=== PATIENT | female | born 1980 | race Caucasian/White ===

== ENCOUNTER 2021-04-25 10:18 | Emergency (ER) | payer BC, MEDICAID ==
[~2021-04-25] VITALS: Ht 170.2 cm; Wt 68.2 kg
[2021-04-25 10:24] VITALS: BP 110/88
[2021-04-25] MEDS ORDERED: ondansetron 4mg rapidly disintigrating tab PO ONE (12:00)
== END 2021-04-25 12:14 | disposition home or self-care (01) ==
LOC: ER 10:19
DX: Z13.89 Encounter for screening for other disorder (principal); F10.10 Alcohol abuse, uncomplicated; Z72.89 Other problems related to lifestyle; Z88.5 Allergy status to narcotic agent; Z88.8 Allergy status to other drugs, medicaments and biological substances; Y90.9 Presence of alcohol in blood, level not specified
CPT/HCPCS: 99283

== ENCOUNTER 2021-04-27 10:25 | Inpatient (IN) | payer BC, MEDICAID ==
[~2021-04-27] VITALS: Ht 170.2 cm; Wt 68.5 kg
[2021-04-27 11:25] LABS: EOSINOPHILS # (AUTO) 0.1 X10'3 (0-0.9); EOSINOPHILS % (AUTO) 1.8 % (0-6); HEMATOCRIT 34.7 % (35.0-45.0); HEMOGLOBIN 11.7 g/dl (12.0-16.0); LYMPHOCYTES # (AUTO) 1.1 X10'3 (1.1-4.8); LYMPHOCYTES % (AUTO) 24.1 % (21-51); MEAN CORPUSCULAR HEMOGLOBIN 32.2 PG (27.0-31.0); MEAN CORPUSCULAR HGB CONC 33.6 g/dL (33.0-36.5); MEAN CORPUSCULAR VOLUME 95.7 FL (78-98); MONOCYTES # (AUTO) 0.3 X10'3 (0-0.9); NEUTROPHILS % (AUTO) 67.1 % (42-75); PLATELET COUNT 215 X10'3 (140-440); RED BLOOD COUNT 3.63 X10'6 (4.20-5.60); WHITE BLOOD COUNT 4.5 X10'3 (4.5-11.0)
[2021-04-27 11:26] LABS: ALANINE AMINOTRANSFERASE 22 U/L (12-78); ALBUMIN 3.6 G/DL (3.4-5.0); ALBUMIN/GLOBULIN RATIO 1.2 (1.1-1.5); ALKALINE PHOSPHATASE 55 IU/L (46-116); ANION GAP 10 (8-16); ASPARTATE AMINO TRANSFERASE 23 U/L (10-37); BLOOD UREA NITROGEN 13 MG/DL (7-18); BUN/CREATININE RATIO 13.3 (6.6-38.0); CALCIUM 8.1 MG/DL (8.5-10.1); CHLORIDE 106 MMOL/L (99-107); CREATININE 0.98 MG/DL (0.40-0.90); GLUCOSE 123 MG/DL (70-104); POTASSIUM 3.3 MMOL/L (3.5-5.1); SODIUM 141 MMOL/L (135-145); TOTAL PROTEIN 6.5 G/DL (6.4-8.2); eGFR 63 ML/MIN
--- NOTE | 2021-04-27 12:51 | NUR ---
lab at bedside.
[2021-04-27] MEDS ORDERED: nitroGLYCERIN 0.4mg SUBLingual tab SL PRN ×2 (13:05→15:50)
--- NOTE | 2021-04-27 13:28 | NUR ---
Shahida From [place] called # [phone]. call that number for a ride when D/C.
--- NOTE | 2021-04-27 14:14 | NUR ---
ambulated with steady gait to/from restroom, nad.
[2021-04-27] MEDS ORDERED: chlordiazePOXIDE 25mg capsule PO ONE (15:15)
[2021-04-27] MEDS ORDERED: potassium CL 10mEq/100ml bag 100 ML IV PRN (15:50)
[2021-04-27] MEDS ORDERED: haloperidol 5mg tablet PO PRN (15:50)
[2021-04-27] MEDS ORDERED: dextrose 50%-water 50ml dispensing syringe IV PRN (15:50)
[2021-04-27] MEDS ORDERED: aminophylline 500mg/20ml vial IV PRN (15:50)
[2021-04-27] MEDS ORDERED: acetaminophen 650mg rectal suppository RC PRN (15:50)
[2021-04-27] MEDS ORDERED: potassium Cl 20 mEq SR tablet PO PRN (15:50)
[2021-04-27] MEDS ORDERED: ondansetron/PF 4mg/2ml inj IV PRN (15:50)
[2021-04-27] MEDS ORDERED: magnesium Cl slow-release 64mg tablet PO PRN (15:50)
[2021-04-27] MEDS ORDERED: regadenoson 0.4mg/5ml syringe IV PRN (15:50)
[2021-04-27] MEDS ORDERED: magnesium 2GM in 50ml NS 50 ML IV PRN (15:50)
[2021-04-27] MEDS ORDERED: acetaminophen 325mg tablet PO PRN ×2 (15:50)
[2021-04-27] MEDS ORDERED: metoprolol tartrate 1mg/ml inj IV PRN (15:50)
[2021-04-27] MEDS ORDERED: LORazepam 2 mg/ml vial IV PRN (15:50)
[2021-04-27] MEDS ORDERED: haloperidol lactate 5mg/ml inj IM PRN (15:50)
[2021-04-27] MEDS ORDERED: magnesium 4gm in 100ml NS 100 ML IV PRN (15:50)
[2021-04-27] MEDS ORDERED: mag hydrox/Alum hydrox/simeth 30ml oral suspension PO PRN (15:50)
[2021-04-27] MEDS ORDERED: diphenhydrAMINE 25mg capsule PO PRN (15:50)
[2021-04-27] MEDS ORDERED: bisacodyl 10mg suppository rectal RC PRN (15:50)
[2021-04-27] MEDS ORDERED: magnesium hydroxide 30ml (MOM) UD suspension PO PRN (15:50)
[2021-04-27] MEDS ORDERED: aspirin 325mg tablet PO ONE (15:55)
--- NOTE | 2021-04-27 16:15 | NUR ---
dr. grigsby at bedside.
--- NOTE | 2021-04-27 16:20 | NUR ---
echo at bedside.
--- NOTE | 2021-04-27 16:25 | NUR ---
telephone report to annemarie vargas. will take pt up after echo is finished at bedside.
[2021-04-27 17:00] VITALS: BP 114/75
[2021-04-27] MEDS: normal saline 1000ml 1,000 ML IV SCH (17:30)
[2021-04-27 18:00] VITALS: BP 118/73
[2021-04-27 18:14] LABS: HEMOGLOBIN A1C 5.2 % (4.5-6.2)
--- NOTE | 2021-04-27 18:20 | NUR ---
Problems reprioritized. Patient report given, questions answered & plan of care reviewed with Penny TAYLOR. Addendum: 04/27/21 at 1820 by Shawna Stewart RN Problems reprioritized. Patient report given, questions answered & plan of care reviewed with Ana TAYLOR.
--- NOTE | 2021-04-27 18:26 | NUR ---
Problems reprioritized. Patient report given to Ana TAYLOR, questions answered & plan of care reviewed with .
--- NOTE | 2021-04-27 18:35 | NUR ---
Patient in room PCU 3016. I have received report from CLAUDIA Correa/CLAUDIA Matos and had the opportunity to ask questions and assume patient care.
[2021-04-27] MEDS ORDERED: LOSA50TA64 PO (18:57)
[2021-04-27] MEDS ORDERED: SERT-434 PO (18:57)
[2021-04-27] MEDS ORDERED: NAPR-996 PO (18:57)
[2021-04-27] MEDS ORDERED: METO-384 PO (18:57)
[2021-04-27] MEDS ORDERED: FLO0.4C PO (18:57)
[2021-04-27] MEDS ORDERED: LAMO100T PO (18:57)
[2021-04-27] MEDS ORDERED: LEVO137T2 PO (18:57)
[2021-04-27] MEDS ORDERED: SUMA50TA17 PO (18:57)
[2021-04-27] MEDS: potassium Cl 20 mEq SR tablet PO PRN (19:48)
[2021-04-27] MEDS: docusate sod 100mg capsule PO SCH (19:48)
[2021-04-27] MEDS: heparin, porcine 5000 units/ml vial SQ SCH (19:49)
[2021-04-27] MEDS: thiamine 100mg/ml 2ml inj. IV SCH (20:40)
[2021-04-27] MEDS: K and/or MAG REPLACEMENT MC SCH (20:41)
[2021-04-27 22:00] VITALS: BP 142/81
[2021-04-27] MEDS: diazepam inj 5 MG/ML inj. IV PRN (22:20)
[2021-04-27] MEDS ORDERED: SUMAtriptan 25 MG tablet PO PRN (22:45)
[2021-04-28] VITALS (12 sets, daily range): BP systolic 122–144; BP diastolic 80–96
[2021-04-28] MEDS: potassium Cl 20 mEq SR tablet PO PRN (00:50)
[2021-04-28 01:22] LABS: BASOPHILS % (AUTO) 0.6 % (0-1); EOSINOPHILS # (AUTO) 0.1 X10'3 (0-0.9); EOSINOPHILS % (AUTO) 1.8 % (0-6); LYMPHOCYTES # (AUTO) 1.6 X10'3 (1.1-4.8); MEAN CORPUSCULAR HEMOGLOBIN 32.3 PG (27.0-31.0); MEAN CORPUSCULAR HGB CONC 34.4 g/dL (33.0-36.5); MEAN CORPUSCULAR VOLUME 93.9 FL (78-98); MEAN PLATELET VOLUME 7.9 FL (7.4-10.4); MONOCYTES # (AUTO) 0.3 X10'3 (0-0.9); MONOCYTES % (AUTO) 5.9 % (2-12); NEUTROPHILS # (AUTO) 2.9 X10'3 (1.8-7.7); NEUTROPHILS % (AUTO) 58.7 % (42-75); PLATELET COUNT 196 X10'3 (140-440); RED BLOOD COUNT 3.41 X10'6 (4.20-5.60); RED CELL DISTRIBUTION WIDTH 13.7 % (11.5-14.5)
[2021-04-28 01:30] LABS: ALANINE AMINOTRANSFERASE 21 U/L (12-78); ALBUMIN 3.1 G/DL (3.4-5.0); ALBUMIN/GLOBULIN RATIO 1.1 (1.1-1.5); ALKALINE PHOSPHATASE 51 IU/L (46-116); ANION GAP 8 (8-16); ASPARTATE AMINO TRANSFERASE 20 U/L (10-37); BILIRUBIN,TOTAL 0.7 MG/DL (0.1-1.0); BLOOD UREA NITROGEN 12 MG/DL (7-18); CALCIUM 7.4 MG/DL (8.5-10.1); CHLORIDE 108 MMOL/L (99-107); GLUCOSE 97 MG/DL (70-104); POTASSIUM 3.5 MMOL/L (3.5-5.1); SODIUM 140 MMOL/L (135-145); TOTAL PROTEIN 5.8 G/DL (6.4-8.2); eGFR 79 ML/MIN
[2021-04-28 01:34] LABS: CHOL/HDL RATIO 1.9 (0.00-4.99); CHOLESTEROL 196 MG/DL (0-200); HDL CHOLESTEROL 101 MG/DL (35-60); LDL CHOLESTEROL 67 MG/DL (50-100); MAGNESIUM 1.9 MG/DL (1.5-2.4); TRIGLYCERIDES 155 MG/DL (20-135)
[2021-04-28] MEDS: normal saline 1000ml 1,000 ML IV SCH ×2 (02:54→11:16)
--- NOTE | 2021-04-28 06:30 | NUR ---
Problems reprioritized. Patient report given, questions answered & plan of care reviewed with CLAUDIA Matos/CLAUDIA Correa.
[2021-04-28] MEDS ORDERED: levoTHYROXINE 75mcg tablet PO SCH (07:00)
[2021-04-28] MEDS: K and/or MAG REPLACEMENT MC SCH (07:26)
[2021-04-28] MEDS ORDERED: iohexol 350MG/ML 100ml bottle IV ONE (07:40)
[2021-04-28] MEDS ORDERED: metoprolol succinate 25mg (24-HOUR) SR. Tablet PO SCH (08:00)
[2021-04-28] MEDS ORDERED: tamsulosin 0.4mg capsule PO SCH (08:00)
[2021-04-28] MEDS ORDERED: folic acid 1mg/0.2ml inj IV SCH (08:00)
[2021-04-28] MEDS ORDERED: losartan 50mg tablet PO SCH (08:00)
[2021-04-28] MEDS ORDERED: lamoTRIgine 100mg tablet PO SCH ×2 (08:00→11:24)
[2021-04-28] MEDS ORDERED: sertraline 50mg tablet PO SCH (08:00)
[2021-04-28] MEDS ORDERED: aspirin 81mg, enteric-coated 1 TAB TABLET.DR PO SCH (08:00)
[2021-04-28] MEDS: diazepam inj 5 MG/ML inj. IV PRN ×2 (08:41→14:59)
[2021-04-28] MEDS: thiamine 100mg/ml 2ml inj. IV SCH ×2 (08:45→10:57)
[2021-04-28] MEDS: heparin, porcine 5000 units/ml vial SQ SCH (08:46)
[2021-04-28] MEDS: docusate sod 100mg capsule PO SCH (08:51)
[2021-04-28 11:59] LABS: CLARITY,URINE CLEAR (Clear); COLOR,URINE YELLOW (Yellow); GLUCOSE, URINE NEGATIVE (Neg); KETONES,URINE NEGATIVE (Neg); LEUKOCYTE ESTERASE ,URINE NEGATIVE (Neg); NITRITES, URINE NEGATIVE (Neg); OCCULT BLOOD,URINE MODERATE (Neg); PROTEIN,URINE NEGATIVE (Neg); UROBILINOGEN,URINE 0.2 E.U/dL (0.2-1.0)
[2021-04-28 12:08] LABS: UA COLLECTION TYPE CLN CATCH MIDSTREAM
--- NOTE | 2021-04-28 12:13 | NUR ---
CTA and Alaina Results available. Louise Paged Message: Dr Gil - [id number] CTA and Lexiscan results are available for review. Madeline [facility]PITALMarychuy
[2021-04-28 12:22] LABS: BACTERIA,URINE 2+ /HPF (Neg); MUCUS STRANDS FEW /LPF (Neg); SQUAMOUS EPITHELIAL CELL,UR MANY /LPF (FEW)
[2021-04-28] MEDS ORDERED: THIA50TA10 PO (12:59)
[2021-04-28] MEDS ORDERED: FOLI0.4T6 PO (12:59)
[2021-04-28] MEDS ORDERED: MULT-1085 PO (12:59)
--- NOTE | 2021-04-28 15:21 | NUR ---
Patient discharged to [facility]. IV removed, discharge paperwork reviewed with no further questions. Patient taken downstairs in wheelchair and released to [facility] employee.
[2021-04-29] MEDS ORDERED: LORazepam 1 MG tablet PO PRN (15:50)
[2021-04-29] MEDS ORDERED: LORazepam 2 mg/ml vial IV PRN (15:50)
[2021-05-01] MEDS ORDERED: LORazepam 1 MG tablet PO PRN (15:50)
[2021-05-01] MEDS ORDERED: LORazepam 2 mg/ml vial IV PRN (15:50)
[2021-05-02] MEDS ORDERED: folic acid 1mg tablet PO SCH (08:00)
[2021-05-02] MEDS ORDERED: thiamine 100mg tablet PO SCH (08:00)
== END 2021-04-28 15:10 | disposition home or self-care (01) | DRG 313 ==
LOC: ER 10:25 → PCU 3S 15:53 → ED HOLD 16:42 → UNDOADMIN 16:42 → PCU 3S 16:48
PROVIDERS: ADMIT Family Medicine; ATTEND Family Medicine
PROC: B32T1ZZ Computerized Tomography (CT Scan) of Left Pulmonary Artery using Low Osmolar Contrast (ICD-10-PCS; principal; 2021-04-28)
PROC: B3201ZZ Computerized Tomography (CT Scan) of Thoracic Aorta using Low Osmolar Contrast (ICD-10-PCS; 2021-04-28)
PROC: B32S1ZZ Computerized Tomography (CT Scan) of Right Pulmonary Artery using Low Osmolar Contrast (ICD-10-PCS; 2021-04-28)
PROC: 4A02XM4 Measurement of Cardiac Total Activity, External Approach (ICD-10-PCS; 2021-04-28)
PROC: 3E033HZ Introduction of Radioactive Substance into Peripheral Vein, Percutaneous Approach (ICD-10-PCS; 2021-04-28)
DX: R07.89 Other chest pain (principal); F10.239 Alcohol dependence with withdrawal, unspecified; E03.9 Hypothyroidism, unspecified; E87.6 Hypokalemia; F32.A Depression, unspecified; R00.2 Palpitations; F41.9 Anxiety disorder, unspecified; G40.909 Epilepsy, unspecified, not intractable, without status epilepticus; G43.909 Migraine, unspecified, not intractable, without status migrainosus; I10 Essential (primary) hypertension; Z79.890 Hormone replacement therapy; Z79.899 Other long term (current) drug therapy; Z87.891 Personal history of nicotine dependence; Z90.711 Acquired absence of uterus with remaining cervical stump; Z88.8 Allergy status to other drugs, medicaments and biological substances; Z90.49 Acquired absence of other specified parts of digestive tract
CPT/HCPCS: 36415; 71045; 71275; 78452; 80053; 80061; 81001; 83036; 83735; 83880; 84100; 84439; 84443; 84484; 85025; 87081; 93005; 93017; 93306; 99285; A9500; G0378; J1644; J2785; J3360; J3411; J3490; J7030; Q9967

== ENCOUNTER 2023-04-15 08:04 | Emergency (ER) | payer BC, MEDICAID ==
[~2023-04-15] VITALS: Ht 167.6 cm; Wt 61.0 kg
[~2023-04-15 08:04] MED LIST: FLO0.4C PO; LAMO100T PO; LEVO137T2 PO; LOSA50TA64 PO; METO-384 PO; MULT-1085 PO; NAPR-996 PO; SERT-434 PO; SUMA50TA17 PO; THIA50TA10 PO
[2023-04-15 08:13] VITALS: TEMP 98
[2023-04-15 08:41] LABS: BASOPHILS # (AUTO) 0.1 X10'3 (0-0.2); BASOPHILS % (AUTO) 0.7 % (0-1); EOSINOPHILS % (AUTO) 0.5 % (0-6); HEMATOCRIT 38.1 % (35.0-45.0); HEMOGLOBIN 12.9 g/dl (12.0-16.0); LYMPHOCYTES # (AUTO) 1.9 X10'3 (1.1-4.8); LYMPHOCYTES % (AUTO) 24.3 % (21-51); MEAN CORPUSCULAR HEMOGLOBIN 31.7 PG (27.0-31.0); MEAN CORPUSCULAR HGB CONC 33.7 g/dL (33.0-36.5); MEAN PLATELET VOLUME 7.9 FL (7.4-10.4); MONOCYTES # (AUTO) 0.3 X10'3 (0-0.9); MONOCYTES % (AUTO) 3.1 % (2-12); NEUTROPHILS # (AUTO) 5.7 X10'3 (1.8-7.7); NEUTROPHILS % (AUTO) 71.4 % (42-75); PLATELET COUNT 322 X10'3 (140-440); RED BLOOD COUNT 4.06 X10'6 (4.20-5.60); RED CELL DISTRIBUTION WIDTH 14.7 % (11.5-14.5)
[2023-04-15] MEDS: normal saline 1000ml 1,000 ML IV ONE (08:43)
[2023-04-15 10:14] LABS: ALBUMIN 3.7 G/DL (3.4-5.0); ANION GAP 12 (8-16); BLOOD UREA NITROGEN 14 MG/DL (7-18); BUN/CREATININE RATIO 18.4 (10.0-20.0); CALCIUM 8.3 MG/DL (8.5-10.1); CHLORIDE 109 MMOL/L (99-107); CREATININE 0.76 MG/DL (0.40-0.90); GLUCOSE 97 MG/DL (70-104); POTASSIUM 3.8 MMOL/L (3.5-5.1); PRO BRAIN NATRIURETIC PEPTIDE 70 PG/ML (0-125); SODIUM 146 MMOL/L (135-145); TOTAL CARBON DIOXIDE 25.4 MMOL/L (24-32); eCRCL 89 ML/MIN; eGFR 83 ML/MIN
[2023-04-15 10:27] VITALS: BP 146/99; PULSE 60; RESP 14; O2SAT 100
== END 2023-04-15 11:07 | disposition home or self-care (01) ==
LOC: ER 08:05
DX: R55 Syncope and collapse (principal); I10 Essential (primary) hypertension; E03.9 Hypothyroidism, unspecified; Z88.5 Allergy status to narcotic agent; Z88.8 Allergy status to other drugs, medicaments and biological substances; Z79.899 Other long term (current) drug therapy; Z90.710 Acquired absence of both cervix and uterus
CPT/HCPCS: 36415; 71045; 80048; 83880; 84484; 85025; 93005; 96360; 99285; J7030